=== PATIENT | female | born 1945 | race Two or more races ===

== ENCOUNTER → 2023-01-19 | Emergency (ER) | payer OTHER ==
[~2023-01-19] VITALS: Ht 215.9 cm; Wt 58.5 kg
== END | disposition home or self-care (01) ==
LOC: ER 17:59
DX: Z02.2 Encounter for examination for admission to residential institution (principal); G30.9 Alzheimer's disease, unspecified; F02.80 Dementia in other diseases classified elsewhere, unspecified severity, without behavioral disturbance, psychotic disturbance, mood disturbance, and anxiety